=== PATIENT | male | born 1970 | race Caucasian/White ===

== ENCOUNTER 2022-11-23 21:48 | Observation (INO) | payer SELFPAY ==
[2022-11-23 21:53] VITALS: BP 172/107; PULSE 100; RESP 26; O2SAT 100; BMI 22.2
--- NOTE | 2022-11-23 22:01 | CT_ITS ---
[address] [address] Patient Name: MICHELLE STEEN MRN: [id number] date: 1970 Sex: M Assigned Patient Location: ER Current Patient Location: ER Accession/Order Number: [id number] Exam Date: 11/23/2022 22:10 Report Date: 11/23/2022 22:44 At the request of: CHELLE BABCOCK Procedure: CT abdomen pelvis wo con EXAMINATION:CT abdomen pelvis wo con INDICATION:abd pain kidney stone COMPARISON:04/22/2019 TECHNIQUE:Multiple thin section transaxial slices were acquired through the abdomen and pelvis without intravenous contrast. Coronal and sagittal reconstructed images were reviewed. Oral contrastWas not administered. FINDINGS: LOWER CHEST: The lower chest is unremarkable. LIVER: The liver is unremarkable. GALLBLADDER AND BILIARY SYSTEM: No obvious ductal dilation. No calcified stones. SPLEEN: The spleen is unremarkable. PANCREAS: The pancreas is unremarkable. ADRENAL GLANDS: The adrenal glands are unremarkable. KIDNEYS AND URETERS: There is mild fullness of the left renal collecting system and ureter secondary to a 5 mm sized distal left ureteral calculus located just proximal to the ureterovesical junction.Punctate right intrarenal calculi are present. There is no hydronephrosis of the right kidney. The right ureter is within normal limits without obstructing urologic calcifications. VASCULATURE: Vascularity is unremarkable. PERITONEUM/RETROPERITONEUM: Peritoneum/retroperitoneum is unremarkable. LYMPH NODES: No suspicious lymphadenopathy. GASTROINTESTINAL TRACT: The bowel is normal in caliber.No acute inflammation of the bowel.The appendix is visualized and is not inflamed. BLADDER: The urinary bladder is unremarkable. REPRODUCTIVE SYSTEM: Reproductive system is unremarkable. BODY WALL: There are small bilateral fat-containing inguinal hernias. There is a tiny fat-containing umbilical hernia. BONES: There is grade 1 anterolisthesis of L4-L5 and minimal retrolisthesis of L5-S1. There is severe degenerative disc space narrowing of L2-L3 and L4-L5. CT/CT abdomen pelvis wo con IMPRESSION: 1. There is very mild left hydronephrosis and hydroureter secondary to a 5 mm size calculus located in the distal left ureter just proximal to the ureterovesical junction. 2. Punctate nonobstructive right intrarenal calculi. Electronically authenticated by: KRISHNA CONDE Date: 11/23/2022 22:44
[2022-11-23 22:31] LABS: Basophils Absolute Auto 0.1 10^3/uL (0.0-0.1); Basophils Percent Auto 0.4 % (0.2-2.0); Eosinophils Absolute Auto 0.2 10^3/uL (0.0-0.7); Eosinophils Percent Auto 2.1 % (0.9-7.0); Hemoglobin 14.6 g/dL (14.0-18.0); Immature Granulocytes Abs Auto 0.06 10^3/uL (0.00-0.03); Immature Granulocytes Pct Auto 0.5 % (0.0-0.5); Lymphocytes Absolute Auto 2.6 10^3/uL (1.2-3.8); Lymphocytes Percent Auto 22.2 % (20.5-60.0); Mean Corpuscular HGB Conc 34.8 g/dL (29.9-35.2); Mean Corpuscular Hemoglobin 31.7 pg (25.9-34.0); Mean Corpuscular Volume 91.1 fL (80.0-94.0); Mean Platelet Volume 11.4 fL (9.5-13.5); Monocytes Percent Auto 8.7 % (1.7-12.0); Neutrophils Absolute Auto 7.7 10^3/uL (1.4-6.5); Neutrophils Percent Auto 66.1 % (43.0-75.0); Platelet Count 286 10^3/uL (150-450); Red Blood Count 4.61 10^6/uL (4.70-6.10); Red Cell Distribution Width 13.5 % (11.0-15.0); White Blood Count 11.6 10^3/uL (4.0-11.0)
[2022-11-23] MEDS: KETOROLAC TROMETHAMINE 30 MG/ML VIAL 15 MG IVP ×2 (22:33→22:59)
[2022-11-23] MEDS: 0.9 % SODIUM CHLORIDE 1,000 ML 1000 ML IV (22:35)
--- NOTE | 2022-11-23 22:38 | PC.NURSE ---
Patient to ED with severe, sudden onset left flank pain. Also with painful urination, increased frequency and decreased urinary output, all of which started this afternoon. No hx of kidney stones or other situations like this. Patient unable to provide urine sample at this time. He has attempted several times, but has not been able to produce enough urine to run testing.
[2022-11-23 22:44] LABS: Alanine Aminotransferase 42 U/L (16-63); Albumin Globulin Ratio 1.1; Albumin Level 3.8 g/dL (3.4-5.0); Alkaline Phosphatase 87 U/L (46-116); Aspartate Amino Transferase 27 U/L (15-37); BUN Creatinine Ratio 9.3; Bilirubin Total 0.3 mg/dL (0.2-1.0); Calcium 8.6 mg/dL (8.5-10.1); Carbon Dioxide 20.5 mmol/L (21.0-32.0); Chloride 101 mmol/L (98-107); Estimated GFR (African America >60 (>=60); Estimated GFR (Non-African Ame >60 (>=60); Globulin 3.4 g/dL; Glucose 121 mg/dL (74-106); Potassium 3.5 mmol/L (3.5-5.1); Sodium 136 mmol/L (136-145); Total Protein 7.2 g/dL (6.4-8.2)
--- NOTE | 2022-11-23 22:50 | ED_ITS ---
HPI - General Adult General Chief complaint: Urogenital-Male Stated complaint: FLANK PAIN BACK PAIN UTI Time Seen by Provider: 11/23/22 21:56 Source: patient Mode of arrival: walk-in Limitations: no limitations History of Present Illness HPI narrative: The patient is coming with a few hour history of left-sided flank pain associated with urinary frequency no fever no chills no other complaint the patient was in severe pain upon presentation The pain is 10 out of 10 right now and the pt had no radiation of the pain , he also had frequency and burning with urinaion no hx of kidney stone Related Data Home Medications Medication Instructions Recorded Confirmed No Known Home Medications 11/23/22 11/23/22 Allergies Allergy/AdvReac Type Severity Reaction Status Date / Time No Known Drug Allergies Allergy Verified 11/23/22 21:57 Review of Systems ROS Status of ROS 10 or more systems reviewed and unremarkable except as noted in history and below [facility] PFS Social History Smoking status: Current every day smoker Exam Narrative Exam Narrative: Nurses notes and vital signs reviewed and patient is not hypoxic. General: Well-appearing and in no apparent distress. Skin: Warm, dry, no pallor noted. No rash. Head: Normocephalic, atraumatic. Neck: Supple, non-tender. Eye: Pupils are equal, round and EOMI. No scleral icterus. Ears, Nose, Mouth, and Throat: TM are clear, no nasal mucosal hypertrophy. Oral mucosa is moist, no posterior oropharynx erythema, uvula is mid-line Cardiovascular: Regular Rate and Rhythm without murmur, gallop or rub. Respiratory: No accessory muscle use or respiratory distress. Lungs are clear to auscultation, no wheezing, rales or rhonchi Chest Wall: no tenderness Back: No midline thoracic or lumbar vertebral tenderness. left sided CVA tendern ess , pt in distress standing and leaning forward Musculoskeletal: normal ROM, no calf or popliteal tenderness, no lower extremity edema/swelling GI: Abdomen is soft, non-distended. Normal bowel sounds. No masses appreciated. No tenderness to palpation. No rebound, guarding, or rigidity noted. Neurological: A&O x4. No cranial nerve dysfunction observed. No truncal ataxia. Moves all extremities. Sensation intact. Psychiatric: Cooperative and interactive. Normal mood and affect. Constitutional Vital Signs, click to edit/add: Last Vital Signs Pulse 100 H 11/23/22 21:53 Resp 26 H 11/23/22 21:53 BP 172/107 H 11/23/22 21:53 Pulse Ox 100 11/23/22 21:53 Course Vital Signs Vital signs: Vital Signs Pulse Rate 100 H 11/23/22 21:53 Respiratory Rate 26 H 11/23/22 21:53 Blood Pressure 172/107 H 11/23/22 21:53 Pulse Oximetry 100 11/23/22 21:53 Pulse Rate 100 H 11/23/22 21:53 Respiratory Rate 26 H 11/23/22 21:53 Blood Pressure 172/107 H 11/23/22 21:53 Pulse Oximetry 100 11/23/22 21:53 Medical Decision Making MDM Narrative Medical decision making narrative: The patient CBC shows mild leukocytosis he was tachycardic on presentation he also presented to us with urgency and frequency was possible kidney stone The patient chemistry shows mild metabolic acidosis with a lactic acid being 2.9 And the patient urinalysis shows white blood cells and leukocyte esterase with the patient picture right now will be treated for possible UTI and sepsis IV fluids started according to the protocol of 30 cc/kg as bolus , blood culture obtained and the patient was started on ciprofloxacin and ceftriaxone The patient CT shows a mild hydronephrosis on the left side in addition to left- sided 5 mm kidney stone The patient case discussed with Dr. Garcia in neurology service and right now we will keep the patient n.p.o. after midnight possible procedure The patient case was discussed with Dr. Massey and the patient will be admitted Lab Data Labs: Lab Results 11/23/22 11/23/22 Range/Units 22:00 23:25 WBC 11.6 H (4.0-11.0) 10^3/uL RBC 4.61 L (4.70-6.10) 10^6/uL Hgb 14.6 (14.0-18.0) g/dL Hct 42.0 (42.0-54.0) % MCV 91.1 (80.0-94.0) fL MCH 31.7 (25.9-34.0) pg MCHC 34.8 (29.9-35.2) g/dL RDW 13.5 (11.0-15.0) % Plt Count 286 (150-450) 10^3/uL MPV 11.4 (9.5-13.5) fL Neut % (Auto) 66.1 (43.0-75.0) % Lymph % (Auto) 22.2 (20.5-60.0) % [place] % (Auto) 8.7 (1.7-12.0) % Eos % (Auto) 2.1 (0.9-7.0) % Baso % (Auto) 0.4 (0.2-2.0) % Neut # (Auto) 7.7 H (1.4-6.5) 10^3/uL Lymph # (Auto) 2.6 (1.2-3.8) 10^3/uL [place] # (Auto) 1.0 H (0.3-0.8) 10^3/uL Eos # (Auto) 0.2 (0.0-0.7) 10^3/uL Baso # (Auto) 0.1 (0.0-0.1) 10^3/uL Abs Immat Gran (auto) 0.06 H (0.00-0.03) 10^3/uL Imm/Tot Granulo (auto) 0.5 (0.0-0.5) % Sodium 136 (136-145) mmol/L Potassium 3.5 (3.5-5.1) mmol/L Chloride 101 (98-107) mmol/L Carbon Dioxide 20.5 L (21.0-32.0) mmol/L Anion Gap 18.0 BUN 8.0 (7.0-18.0) mg/dL Creatinine 0.86 (0.70-1.30) mg/dL Est GFR ( Amer) >60 (>=60) Est GFR (Non-Af Amer) >60 (>=60) BUN/Creatinine Ratio 9.3 Glucose 121 H (74-106) mg/dL Lactate 2.9 H* (0.4-2.0) mmol/L Calcium 8.6 (8.5-10.1) mg/dL Total Bilirubin 0.3 (0.2-1.0) mg/dL AST 27 (15-37) U/L ALT 42 (16-63) U/L Alkaline Phosphatase 87 (46-116) U/L Total Protein 7.2 (6.4-8.2) g/dL Albumin 3.8 (3.4-5.0) g/dL Globulin 3.4 g/dL Albumin/Globulin Ratio 1.1 Urine Color Lt. yellow (YELLOW) Urine Clarity Clear (CLEAR) Urine pH 6.0 (5.0-9.0) Ur Specific [place] <=1.005 A (1.005-1.025) Urine Protein Negative (NEG/TRACE) mg/dL Urine Glucose (UA) Negative (NEGATIVE) mg/dL Urine Ketones Negative (NEGATIVE) mg/dL Urine Occult Blood Moderate A (NEGATIVE) Urine Nitrite Negative (NEGATIVE) Urine Bilirubin Negative (NEGATIVE) Urine Urobilinogen 0.2 (0.2-1.0) EU/dL Ur Leukocyte Esterase Small A (NEGATIVE) Urine RBC 0-2 (0-2) #/HPF Urine WBC 5-10 A (NONE SEEN) #/HPF Ur Squamous Epith Cells Rare (NONE/RARE) #/LPF Ur Transition Epith Cell Rare A (NONE SEEN) #/LPF Urine Crystals None seen (None Seen) #/HPF Urine Bacteria None seen (NONE SEEN) #/HPF Urine Casts None seen (NONE SEEN) #/LPF Urine Mucus None seen (NONE SEEN) Ur Culture Indicated? Yes Ethanol Quant <3 mg/dL Discharge Plan Discharge Chief Complaint: Urogenital-Male Clinical Impression: Urinary tract infection, Kidney stone, Sepsis, Acidosis, lactic Patient Disposition: Admitted As Inpatient Time of Disposition Decision: 00:04 Condition: Good
[2022-11-23 23:06] LABS: Ethanol <3 mg/dL
[2022-11-23 23:19] LABS: Lactate/Lactic Acid 2.9 mmol/L (0.4-2.0)
[2022-11-23 23:28] LABS: Bilirubin Urine NEGATIVE (NEGATIVE); Blood Urine MODERATE (NEGATIVE); Clarity Urine CLEAR (CLEAR); Color Urine LT. YELLOW (YELLOW); Glucose Urine UA NEGATIVE (NEGATIVE); Ketones Urine NEGATIVE (NEGATIVE); Leukocyte Esterase Urine SMALL (NEGATIVE); Nitrite Urine NEGATIVE (NEGATIVE); Protein Urine NEGATIVE (NEG/TRACE); Specific Gravity Urine <=1.005 (1.005-1.025); Urobilinogen Urine 0.2 EU/dL (0.2-1.0)
[2022-11-23 23:30] LABS: Urine Microscopic Indicated YES
[2022-11-23 23:35] LABS: Bacteria Urine NONE SEEN #/HPF (NONE SEEN); RBC Urine 0-2 #/HPF (0-2)
[2022-11-23 23:36] LABS: Cast Seen? NONE SEEN #/LPF (NONE SEEN); Crystals Seen? None Seen #/HPF (None Seen); Mucus Urine NONE SEEN (NONE SEEN); Squamous Epithelial Cell Urine RARE #/LPF (NONE/RARE); Transitional Epi Cells Urine RARE #/LPF (NONE SEEN); Urine Culture Indicated YES
[2022-11-23] MEDS: CEFTRIAXONE 1,000 MG in 0.9 % SODIUM CHLORIDE 50 ML 100 MG IV (23:44)
[2022-11-23] MEDS: CIPROFLOXACIN IN 5 % DEXTROSE 400 MG/200 ML PIGGYBACK 200 MG IV (23:46)
[2022-11-24] VITALS (15 sets, daily range): BP systolic 104–170; BP diastolic 67–112; PULSE 64–94; RESP 12–23; TEMP 36.6–36.9; O2SAT 90–100; BMI 24.2
--- NOTE | 2022-11-24 | XR_ITS ---
The [address] [address] Patient Name: MICHELLE STEEN MRN: [id number] date: 1970 Sex: M Assigned Patient Location: MS Current Patient Location: Accession/Order Number: [id number] Exam Date: 11/24/2022 11:00 Report Date: 11/24/2022 15:56 At the request of: MICKEY DICKERSON Procedure: XR urethrogram retrograde EXAM: XR urethrogram retrograde HISTORY: LEFT URETERAL STONE COMPARISON: CT abdomen pelvis 11/23/2022 TECHNIQUE: Single intraoperative spot fluoroscopic images during left urethrogram. FINDINGS: Placement of a left ureteral stent. Contrast is present within the upper collecting system and has accumulated within the distal ureter likely due to partial obstruction from a distal ureteral stone(s). XR/XR urethrogram retrograde IMPRESSION: 1. Left ureteral stent placement. 2. Partially obstructing stones within distal left ureter. Electronically authenticated by: MICHELLE RUBIN Date: 11/24/2022 15:56
[2022-11-24] MEDS: SODIUM CHLORIDE 707 ML IV (00:22)
[2022-11-24] MEDS: MORPHINE SULFATE 2 MG/ML SYRINGE IV (00:55)
--- NOTE | 2022-11-24 05:03 | W.PM.TELEPN ---
Progress Note: Subjective Subjective Interval history: Flank pain HPI: This is usually healthy 52-year-old male who presents with above complaints. Patient stating that earlier today he developed pain in his flank which gradually intensified. He denies fevers or chills. On presentation the emergency room imaging studies reveal a 4 mm stone. Urinalysis showed signs of pyuria. Urologist on-call, Dr. Garcia consulted and recommended admission to medical service with possible intervention in the morning. Exam Narrative Exam Narrative: Physical Exam: Not in distress, pleasant, lucid, cooperative, Head - atraumatic, eyes - pupils equal, round, reactive to light, extra ocular movement intact, MMM Neck - supple, thyroid not enlarged, LN not palpated Lungs - clear to auscultation, no dullness on percussion CVS - heart sounds S1, S2, no additional murmurs gallop, regular rate and rhythm Gastrointestinal?abdomen is soft, non-tender, non-distended, no organomegaly, positive bowel sounds CVA tenderness Extremities no clubbing, cyanosis or edema Neurological?cranial nerve II?XII grossly intact, no meningeal signs, no cerebellar signs, no sensory deficit Musculoskeletal - joints, no effusions, ROM preserved Dermatological - the skin dry, warm, no rashes Psychiatric?patient is AAO X3, patient has normal affect Constitutional Vital Signs, click to edit/add: Last Vital Signs Temp 98.4 F 11/24/22 02:29 Pulse 85 11/24/22 02:29 Resp 16 11/24/22 02:29 BP 164/90 H 11/24/22 02:29 Pulse Ox 97 11/24/22 02:29 O2 Del Method Room Air 11/24/22 02:29 Progress Note: Objective Labs Labs: Short CBC 11/23/22 Range/Units 22:00 WBC 11.6 H (4.0-11.0) 10^3/uL Hgb 14.6 (14.0-18.0) g/dL Hct 42.0 (42.0-54.0) % Plt Count 286 (150-450) 10^3/uL BMP 11/23/22 22:00 Sodium 136 Potassium 3.5 Chloride 101 Carbon Dioxide 20.5 L BUN 8.0 Creatinine 0.86 Glucose 121 H Calcium 8.6 Liver Function 11/23/22 Range/Units 22:00 Total Bilirubin 0.3 (0.2-1.0) mg/dL AST 27 (15-37) U/L ALT 42 (16-63) U/L Alkaline Phosphatase 87 (46-116) U/L Albumin 3.8 (3.4-5.0) g/dL Urine 11/23/22 Range/Units 23:25 Urine Color Lt. yellow (YELLOW) Urine Clarity Clear (CLEAR) Urine pH 6.0 (5.0-9.0) Ur Specific [place] <=1.005 A (1.005-1.025) Urine Protein Negative (NEG/TRACE) mg/dL Urine Glucose (UA) Negative (NEGATIVE) mg/dL Progress Note: A&P Assessment and Plan (1) Urinary tract infection: Assessment and Plan: The patient started on empiric, broad-spectrum antibiotics Follow-up with urologist for further recommendations Follow-up culture symptoms control s (2) Kidney stone: Assessment and Plan: As above (3) Sepsis: Assessment and Plan: Due to infection. Improving with IV fluids (4) Acidosis, lactic: Assessment and Plan: This is a result of the sepsis Plan As the provider for the telehealth service, I attest that I introduced myself to the patient, provided my credentials, disclosed by location and determined that based on a review of the patient's chart and discussion with members of the patient's treatment team, telemedicine via real-time, 2 way, and interactive audio and video platform is an appropriate and effective means of providing the service. ?The patient and I mutually agree this visit is appropriate for telemedicine. ?[place] ?The encounter took approximately 35 minutes. ?The nurse was present during the entire time and I was able to move the stethoscope in appropriate directions. ?The patient was evaluated at the Hospital ? Portions of this note may be dictated using [employer]'s voice recognition software. Variances in spelling and vocabulary are possible and unintentional. Not all errors may be caught and/or corrected. Please notify the author if any discrepancies are noted and/or if the meaning of any statement is unclear.? ? Patient verbally consented for treatment via video visit with patient currently located at [facility] and provider located in [place]. Telemedicine Attestation Telemedicine Attestation I conducted this encounter from [place] [] via secure live, [id number] video conference with the patient, located at [facility] with [urinary tract infection]. Prior to the interview, the risks and benefits of telemedicine were discussed with the patient and verbal consent was obtained.
[2022-11-24] MEDS: HYDROMORPHONE HCL 0.5 MG/0.5 ML SYRINGE IV (05:35)
[2022-11-24] MEDS: 0.9 % SODIUM CHLORIDE 1,000 ML 100 ML IV (05:40)
[2022-11-24 06:23] LABS: Alanine Aminotransferase 31 U/L (16-63); Albumin Level 2.9 g/dL (3.4-5.0); Alkaline Phosphatase 71 U/L (46-116); Anion Gap 13.3; Aspartate Amino Transferase 21 U/L (15-37); BUN Creatinine Ratio 6.1; Bilirubin Total 0.4 mg/dL (0.2-1.0); Calcium 7.8 mg/dL (8.5-10.1); Carbon Dioxide 24.5 mmol/L (21.0-32.0); Chloride 107 mmol/L (98-107); Estimated GFR (African America >60 (>=60); Estimated GFR (Non-African Ame >60 (>=60); Globulin 2.9 g/dL; Glucose 101 mg/dL (74-106); Potassium 3.8 mmol/L (3.5-5.1); Sodium 141 mmol/L (136-145); Total Protein 5.8 g/dL (6.4-8.2)
--- NOTE | 2022-11-24 07:49 | PC.NURSE ---
urology called for update at this time. new orders received.
[2022-11-24 08:17] LABS: Basophils Absolute Auto 0.1 10^3/uL (0.0-0.1); Basophils Percent Auto 0.6 % (0.2-2.0); Eosinophils Absolute Auto 0.2 10^3/uL (0.0-0.7); Eosinophils Percent Auto 1.7 % (0.9-7.0); Hematocrit 39.1 % (42.0-54.0); Immature Granulocytes Abs Auto 0.05 10^3/uL (0.00-0.03); Immature Granulocytes Pct Auto 0.5 % (0.0-0.5); Lymphocytes Absolute Auto 2.9 10^3/uL (1.2-3.8); Lymphocytes Percent Auto 26.7 % (20.5-60.0); Mean Corpuscular HGB Conc 33.2 g/dL (29.9-35.2); Mean Corpuscular Hemoglobin 31.6 pg (25.9-34.0); Mean Corpuscular Volume 94.9 fL (80.0-94.0); Mean Platelet Volume 11.5 fL (9.5-13.5); Monocytes Absolute Auto 0.8 10^3/uL (0.3-0.8); Monocytes Percent Auto 7.2 % (1.7-12.0); Neutrophils Absolute Auto 6.8 10^3/uL (1.4-6.5); Neutrophils Percent Auto 63.3 % (43.0-75.0); Platelet Count 245 10^3/uL (150-450); Red Blood Count 4.12 10^6/uL (4.70-6.10); Red Cell Distribution Width 13.4 % (11.0-15.0); White Blood Count 10.7 10^3/uL (4.0-11.0)
[2022-11-24] MEDS: CIPROFLOXACIN IN 5 % DEXTROSE 400 MG/200 ML PIGGYBACK 200 MG IV (09:43)
[2022-11-24] MEDS: TAMSULOSIN HCL 0.4 MG CAPSULE PO (09:43)
--- NOTE | 2022-11-24 09:44 | PM.HP ---
H&P: HPI History of Present Illness Chief complaint: FLANK PAIN BACK PAIN, SEPSIS, UTI, KIDNEY STONE Narrative: Patient with no history of kidney stones presented to the emergency room with left flank pain. Found to have a 5 mm kidney stone with mild left hydronephrosis. Unable to control pain in ER, patient was admitted for evaluation and treatment Review of Systems ROS Status of ROS 10 or more systems reviewed and unremarkable except as noted in history and below [facility] Medical History (Updated 11/24/22 @ 11:21 by Anum Garcia MD) Social History Within the past year, how often did you have a drink containing alcohol: 4 or more times a week Within the past year, how many standard drinks containing alcohol did you have on a typical day: 3 or 4 Smoking status: Current every day smoker Nicotine containing products detail: pack and a half daily Non-prescribed substance use: denies use Previous occupational history: construction Are you now , , , , never or living with a partner: In a typical week, how many times do you talk on the telephone with family, friends, or neighbors: 3 or more times per week How often do you get together with friends or relatives: twice per week How often do you attend adventist or lutheran services: never Do you belong to any clubs or organizations such as adventist groups unions, fraternal or athletic groups, or school groups: no Total score: 2 Score interpretation: A score of greater than or equal to 2 indicates the lowest level of social isolation. Little interest or pleasure in doing things: not at all Feeling down, depressed, or hopeless: not at all Feel stressed/tense/nervous/anxious/difficulty sleeping: not at all Life stressors: recent of family or friend Life stressor details: brother passing Due to disability, difficulty making decisions: No Do you think of yourself as: straight/heterosexual Gender Identity: male Meds Home Medications and Allergies Home Medications Medication Instructions Recorded Confirmed Type ciprofloxacin HCl 500 mg tablet 500 mg PO Q12H #20 tabs 11/24/22 Rx oxybutynin chloride 5 mg tablet 5 mg PO Q8H PRN bladder spasms #90 11/24/22 Rx tabs tamsulosin 0.4 mg capsule 0.4 mg PO DAILY stent pain #30 caps 11/24/22 Rx Allergies Allergy/AdvReac Type Severity Reaction Status Date / Time No Known Drug Allergies Allergy Verified 11/23/22 21:57 Exam Constitutional Vital Signs, click to edit/add: Last Vital Signs Temp 98.0 F 11/24/22 05:49 Pulse 68 11/24/22 05:49 Resp 16 11/24/22 05:49 BP 145/83 H 11/24/22 05:49 Pulse Ox 94 L 11/24/22 05:49 O2 Del Method Room Air 11/24/22 05:49 Documenting provider has reviewed patient's vital signs: yes Common normals: no apparent distress Chest Common normals: inspection of chest normal Respiratory Common normals: normal respiratory effort Cardio Common normals: regular rate and regular rhythm GI Common normals: Normal to inspection, nondistended, normoactive bowel sounds present Common normals: CVA tenderness present (Left CVA tenderness) Results Labs Labs: Short CBC 11/23/22 11/24/22 Range/Units 22:00 05:19 WBC 11.6 H 10.7 (4.0-11.0) 10^3/uL Hgb 14.6 13.0 L (14.0-18.0) g/dL Hct 42.0 39.1 L (42.0-54.0) % Plt Count 286 245 (150-450) 10^3/uL BMP 11/23/22 11/24/22 22:00 05:19 Sodium 136 141 Potassium 3.5 3.8 Chloride 101 107 Carbon Dioxide 20.5 L 24.5 BUN 8.0 4.0 L Creatinine 0.86 0.66 L Glucose 121 H 101 Calcium 8.6 7.8 L Liver Function 11/23/22 11/24/22 Range/Units 22:00 05:19 Total Bilirubin 0.3 0.4 (0.2-1.0) mg/dL AST 27 21 (15-37) U/L ALT 42 31 (16-63) U/L Alkaline Phosphatase 87 71 (46-116) U/L Albumin 3.8 2.9 L (3.4-5.0) g/dL Urine 11/23/22 Range/Units 23:25 Urine Color Lt. yellow (YELLOW) Urine Clarity Clear (CLEAR) Urine pH 6.0 (5.0-9.0) Ur Specific [place] <=1.005 A (1.005-1.025) Urine Protein Negative (NEG/TRACE) mg/dL Urine Glucose (UA) Negative (NEGATIVE) mg/dL Assessment and Plan Assessment and Plan (1) Urinary tract infection: (2) Kidney stone: (3) Sepsis: (4) Acidosis, lactic: (5) Ureteral stone with hydronephrosis: Plan Sinus tachycardia, respiratory distress, uncontrolled hypertension, leukocytosis with positive lactate and abnormal UA, left [id number] to left obstructing nephrolithiasis. Sepsis. Patient given fluids overnight, IV antibiotics, plan is to consult to urology, if improved later today possible discharge. Medications to this. Follow-up with a PCP within the next week.
--- NOTE | 2022-11-24 09:47 | CM.NOTE ---
Rounds made with Dr. Le. Potential for discharge later today after surgical intervention.
[2022-11-24] MEDS: CEFTRIAXONE 1,000 MG in 0.9 % SODIUM CHLORIDE 50 ML 100 MG IV (10:47)
--- NOTE | 2022-11-24 10:58 | P.CN_ITS ---
Consult Note: HPI Data of Consult Consult date: 11/24/22 Requesting Physician: Ron Le MD Primary Care Provider: Non-Staff Physician, MD Consult Narrative Reason for consult: left ureteral stone, concern for sepsis Narrative: 52 year old male with left flank/ back pain and difficulty voiding for one day. Patient arrived tachycardic and hypertensive.Workup here revealed WBC 11, Cr wnl, lactic acid 2.9, UA small leuk esterase, and CT AP wo contrast noting 5 mm left distal ureteral stone just proximal to UVJ with mild hydronephrosis. Due to concern for sepsis with elevated lactate, he was given empiric ceftriaxone and cipro by the ER and admitted for further management. Urology was consulted for further evaluation. Pt still with moderate pain. Denies fever, chills, nausea, emesis, dysuria or hematuria. First stone event Denies hx of RI, stroke, DM2 or other urologic issues. cc:: CC: Ron Le MD Review of Systems ROS Status of ROS 10 or more systems reviewed and unremarkable except as noted in history and below Constitutional Denies: fever or chills Eyes Denies: change in vision or blurry vision Ears, nose, mouth, and throat Denies: throat pain or difficulty swallowing Cardiovascular Denies: chest pain or palpitations Respiratory Denies: shortness of breath or cough Gastrointestinal Reports: abdominal pain (LLQ); Denies: nausea or vomiting Genitourinary Reports: difficulty urinating; Denies: painful urination or blood in urine Musculoskeletal Reports: back pain (L); Denies: extremity pain Integumentary/Breast Denies: rash or itching Neurological Denies: headache or numbness in extremities Psychiatric Denies: anxiety or memory loss Endocrine Denies: excessive urination or excessive thirst Hematologic/Lymphatic Denies: easy bruising or easy bleeding PFSH PFSH Medical History Social History Within the past year, how often did you have a drink containing alcohol: 4 or more times a week Within the past year, how many standard drinks containing alcohol did you have on a typical day: 3 or 4 Smoking status: Current every day smoker Nicotine containing products detail: pack and a half daily Non-prescribed substance use: denies use Previous occupational history: construction Are you now , , , , never or living with a partner: In a typical week, how many times do you talk on the telephone with family, friends, or neighbors: 3 or more times per week How often do you get together with friends or relatives: twice per week How often do you attend druze or gnosticism services: never Do you belong to any clubs or organizations such as druze groups unions, fraternal or athletic groups, or school groups: no Total score: 2 Score interpretation: A score of greater than or equal to 2 indicates the lowest level of social isolation. Little interest or pleasure in doing things: not at all Feeling down, depressed, or hopeless: not at all Feel stressed/tense/nervous/anxious/difficulty sleeping: not at all Life stressors: recent of family or friend Life stressor details: brother passing Due to disability, difficulty making decisions: No Do you think of yourself as: straight/heterosexual Gender Identity: male Meds Home Medications and Allergies Home Medications Medication Instructions Recorded Confirmed Type ciprofloxacin HCl 500 mg tablet 500 mg PO Q12H #20 tabs 11/24/22 Rx Allergies Allergy/AdvReac Type Severity Reaction Status Date / Time No Known Drug Allergies Allergy Verified 11/23/22 21:57 Exam Narrative Exam Narrative: No acute distress, appears nontoxic Nonlabored respirations, symmetric chest rise, on room air Normal rate and rhythm, no peripheral edema Left lower quadrant with moderate tenderness to palpation, non distended Left CVA tenderness to palpation, no suprapubic or right CVA tenderness palpation Moves all extremities, no deformities Alert and oriented x 4, no acute focal deficits Skin dry, intact Appropriate, cooperative Constitutional Vital Signs, click to edit/add: Last Vital Signs Temp 98.0 F 11/24/22 05:49 Pulse 68 11/24/22 05:49 Resp 16 11/24/22 05:49 BP 145/83 H 11/24/22 05:49 Pulse Ox 94 L 11/24/22 05:49 O2 Del Method Room Air 11/24/22 05:49 Results Labs Labs: Short CBC 11/23/22 11/24/22 Range/Units 22:00 05:19 WBC 11.6 H 10.7 (4.0-11.0) 10^3/uL Hgb 14.6 13.0 L (14.0-18.0) g/dL Hct 42.0 39.1 L (42.0-54.0) % Plt Count 286 245 (150-450) 10^3/uL BMP 11/23/22 11/24/22 22:00 05:19 Sodium 136 141 Potassium 3.5 3.8 Chloride 101 107 Carbon Dioxide 20.5 L 24.5 BUN 8.0 4.0 L Creatinine 0.86 0.66 L Glucose 121 H 101 Calcium 8.6 7.8 L Liver Function 11/23/22 11/24/22 Range/Units 22:00 05:19 Total Bilirubin 0.3 0.4 (0.2-1.0) mg/dL AST 27 21 (15-37) U/L ALT 42 31 (16-63) U/L Alkaline Phosphatase 87 71 (46-116) U/L Albumin 3.8 2.9 L (3.4-5.0) g/dL Urine 11/23/22 Range/Units 23:25 Urine Color Lt. yellow (YELLOW) Urine Clarity Clear (CLEAR) Urine pH 6.0 (5.0-9.0) Ur Specific [place] <=1.005 A (1.005-1.025) Urine Protein Negative (NEG/TRACE) mg/dL Urine Glucose (UA) Negative (NEGATIVE) mg/dL Imaging CT scan - pelvis: Radiologist's impression: Patient Name: MICHELLE STEEN ? MRN: [id number]? ? date: 1970? ? Sex: M Assigned Patient Location: ER Current Patient Location: ER Accession/Order Number: [id number] Exam Date: 11/23/2022? 22:10? ? Report Date: 11/23/2022? 22:44 ? At the request of: CHELLE? DIAB? ? Procedure:? CT abdomen pelvis wo con ? EXAMINATION:CT abdomen pelvis wo con ? INDICATION:abd pain kidney stone ? COMPARISON:04/22/2019 ? TECHNIQUE:Multiple thin section transaxial slices were acquired through the abdomen and pelvis without intravenous contrast. Coronal and sagittal reconstructed images were reviewed. Oral contrastWas not administered. ? FINDINGS: LOWER CHEST: The lower chest is unremarkable. ? LIVER: The liver is unremarkable. ? GALLBLADDER AND BILIARY SYSTEM: No obvious ductal dilation. No calcified stones. ? SPLEEN: The spleen is unremarkable. ? PANCREAS: The pancreas is unremarkable. ? ADRENAL GLANDS: The adrenal glands are unremarkable. ? KIDNEYS AND URETERS: There is mild fullness of the left renal collecting system and ureter secondary to a 5 mm sized distal left ureteral calculus located just proximal to the ureterovesical junction.Punctate right intrarenal calculi are present. There is no hydronephrosis of the right kidney. The right ureter is within normal limits without obstructing urologic calcifications. ? VASCULATURE: Vascularity is unremarkable. ? PERITONEUM/RETROPERITONEUM: Peritoneum/retroperitoneum is unremarkable. ? LYMPH NODES: No suspicious lymphadenopathy. ? GASTROINTESTINAL TRACT: The bowel is normal in caliber.No acute inflammation of the bowel.The appendix is visualized and is not inflamed. ? BLADDER: The urinary bladder is unremarkable. ? REPRODUCTIVE SYSTEM: Reproductive system is unremarkable. ? BODY WALL: There are small bilateral fat-containing inguinal hernias. There is ? a tiny fat-containing umbilical hernia. ? BONES: There is grade 1 anterolisthesis of L4-L5 and minimal retrolisthesis of ? L5-S1. There is severe degenerative disc space narrowing of L2-L3 and L4-L5. ? CT/CT abdomen pelvis wo con IMPRESSION: ? 1. There is very mild left hydronephrosis and hydroureter secondary to a 5 mm size calculus located in the distal left ureter just proximal to the ureterovesical junction. 2. Punctate nonobstructive right intrarenal calculi. Assessment and Plan Assessment and Plan (1) Ureteral stone with hydronephrosis: (2) Urinary tract infection: (3) Sepsis: (4) Acidosis, lactic: Plan 52 year old male presents with first acute stone event and concern for sepsis due to tachycardia and elevated lactic acid secondary to a 5 mm left distal ureteral stone with mild hydronephrosis and uncontrolled renal colic. After discussion of risks/benefits of management options, he elected to proceed with cystoscopy, left retrograde pyelogram, left ureteral stent placement. Risks were discussed including but not limited to bleeding, pain, infection, damage to surrounding structures, inability to treat the stone/place a stent, and need for additional procedures. The patient understands the stent is not permanent and needs to be removed or exchanged within 3 months to prevent encrustation, infection, invasive procedures and/or permanent renal damage. -Cont empiric abx and follow up urine culture, treat x 10 days -Cont care on floor post op
--- NOTE | 2022-11-24 11:24 | PM.URSON ---
Urology Surgery Operative Note Operative Note Procedure Date: 11/05/22 Time Out Performed: yes Pre-op Diagnosis: 1. Left distal ureteral stone with hydronephrosis 2. Renal colic 3. UTI 4. Concern for sepsis Post-op Diagnosis: Same Procedures performed: Cystoscopy, left retrograde pyelogram, left ureteral stent placement Anesthesia: GETA (LMA, Dr. Mariusz To ) Primary Surgeon: Anum Garcia Complications: none Estimated blood loss (mL): 0 Findings: Mild bilobar prostatic hypertrophy. Difficult to navigate wire past left distal ureter. L RPG- filling defect at distal ureter, mild proximal hydroureteronephrosis without extravasation. Successful placement of ureteral stent, return of mild debris Specimens: none Drains: 4.7Fr x 22-32 cm JJ left ureteral stent Incision: none Indications for Procedures: 52 year old male presents with first acute stone event and concern for sepsis due to tachycardia and elevated lactic acid secondary to a 5 mm left distal ureteral stone with mild hydronephrosis and uncontrolled renal colic. After discussion of risks/benefits of management options, he elected to proceed with cystoscopy, left retrograde pyelogram, left ureteral stent placement. Risks were discussed including but not limited to bleeding, pain, infection, damage to surrounding structures, inability to treat the stone/place a stent, and need for additional procedures. The patient understands the stent is not permanent and needs to be removed or exchanged within 3 months to prevent encrustation, infection, invasive procedures and/or permanent renal damage. Detailed description of Procedure: After informed consent was obtained, the patient was brought to the operating room and transferred onto the operating table in supine position. Sequential compression devices were placed on bilateral lower extremities. The patient received the appropriate dose of preoperative IV antibiotics (ciprofloxacin) and general anesthesia LMA was induced. They were positioned in modified dorsolithotomy with the appropriate pressure points padded, prepped, and draped in the usual sterile fashion for this procedure. An operative safety timeout was performed confirming the patient's identity, laterality and procedure, and all present agreed to proceed. I began by inserting a 22 [place]i rigid cystoscope with 30 degree lens into the patient's urethra and bladder without difficulty. There were no bladder tumors, lesions or foreign bodies. Bilateral ureteral orifices were orthotopic and patent. I turned my attention to the left ureteral orifice and a 6- [place] open-ended catheter was unable to be inserted into the ureteral orifice. A sensor wire was used to intubate the left UO with some difficulty, ultimately able to bypass the stone and advance the open ended catheter. Dilute contrast was injected for retrograde pyelogram with findings above. The sensor wire was inserted into the ureter up to the renal pelvis confirmed on fluoroscopy, catheter removed. A 4.7Fr x 22-32 cm JJ variable length ureteral stent was advanced over the wire, noting adequate curl in the renal pelvis and bladder on fluoroscopic and direct visualization. The bladder was drained and inspected one final time to ensure adequate position of stent and no undue trauma to the bladder was done. The patient tolerated the procedure well without complication. The patient was awakened from anesthesia and sent to PACU in stable condition. Plan: Return to floor, cont empiric abx and follow up urine culture, treat x 7-10 days. Stable for dc home later today if pt remains stable, afebrile, lactic acidosis resolves. Follow up in office in 1-2 weeks with KUB to discuss definitive stone treatment. Other Provider present: No Post Operative care instructions: See discharge instructions Attending Doc Confirm Attending Attestation: Yes
[2022-11-24] MEDS: IOHEXOL 300 MG/ML - 50 ML BTL INJ (11:30)
[2022-11-24] MEDS: HYDROCODONE/ACETAMINOPHEN 5-325 MG TABLET 1 TAB PO (13:06)
[2022-11-24 14:55] LABS: Lactate/Lactic Acid 1.7 mmol/L (0.4-2.0)
--- NOTE | 2022-12-03 11:56 | CM.DCFOLLOWU ---
3 discharge follow up calls were attempted, no answer
== END 2022-11-24 16:33 | disposition home or self-care (01) ==
LOC: ER 11-24 00:04 → MS 11-24 04:54
PROVIDERS: Urology; Admitting Provider Internal Medicine; Emergency Provider Emergency Medicine; Visit Provider Family Medicine
PROC: (CPT 52332; principal; 2022-11-24 10:45)
DX: A41.9 Sepsis, unspecified organism (principal); N13.6 Pyonephrosis; E87.20 Acidosis, unspecified; F17.210 Nicotine dependence, cigarettes, uncomplicated
CPT/HCPCS: 52332; 36415; 74176; 74420; 76000; 80053; 80320; 81001; 81003; 83605; 85025; 87040; 87086; 96365; 96366; 96368; 96375; 99285; G0378; J1170; J2704; Q9967

== ENCOUNTER 2022-12-10 10:03 | Outpatient (OUT) | payer SELFPAY ==
--- NOTE | 2022-12-10 10:07 | ECG_ITS ---
The [facility] Test Date: 2022-12-10 Pat Name: MICHELLE STEEN Department: Room: - Gender: Male Residence Life Coordinator: : 1970 Requested By: [id number] Order Number: [id number] Reading MD: DAISY MORRIS Measurements Intervals [place] Rate: 70 P: 64 MO: 167 QRS: 21 QRSD: 115 T: 51 QT: 399 QTc: 433 Interpretive Statements SINUS RHYTHM MODERATE INTRAVENTRICULAR CONDUCTION DELAY [110+ ms QRS DURATION] No previous ECG available for comparison Electronically Signed On 12-11-2022 7:06:56 EDT by DAISY MORRIS
== END 2022-12-10 10:04 | disposition home or self-care (01) ==
LOC: PST 10:05
PROVIDERS: Visit Provider Urology
DX: Z01.810 Encounter for preprocedural cardiovascular examination (principal); N20.1 Calculus of ureter
CPT/HCPCS: 93005

== ENCOUNTER 2022-12-24 11:53 | Day surgery (SDC) | payer SELFPAY ==
[2022-12-10 10:25] VITALS: BP 138/86; PULSE 75; RESP 18; TEMP 36.3; O2SAT 99; BMI 23.3
[2022-12-24] VITALS (13 sets, daily range): BP systolic 129–156; BP diastolic 84–98; PULSE 61–93; RESP 14–25; TEMP 36.1–36.2; O2SAT 96–100; BMI 22.1
[2022-12-24] MEDS: LACTATED RINGER'S SOLUTION 1,000 ML 50 ML IV (12:22)
[2022-12-24] MEDS: IPRATROPIUM/ALBUTEROL SULFATE 3 ML AMPUL.NEB IH (12:33)
[2022-12-24] MEDS: CEFAZOLIN SODIUM/DEXTROSE,ISO 2 GM/50 ML PIGGYBACK IV (13:18)
--- NOTE | 2022-12-24 13:23 | P.URON_ITS ---
Urology Surgery Operative Note Operative Note Procedure Date: 12/24/22 Time Out Performed: yes Pre-op Diagnosis: Left distal ureteral stone, indwelling stent Post-op Diagnosis: same as pre-op Procedures performed: Cystoscopy, left retrograde pyelogram, ureteroscopy laser lithotripsy/stone extraction, stent exchange Anesthesia: GETA (LMA Dr. Suresh Ritter ) Primary Surgeon: Anum Garcia Complications: none Estimated blood loss (mL): 0 Findings: Mild bilobar hypertrophy. Tight distal ureter. Left dark irregular shaped distal stone, partially impacted into ureter, successfully basket extracted. No hydronephrosis, extravasation or filling defects. Specimens: left ureteral stone Drains: 4.8Fr x 22-30 cm JJ left ureteral stent on string Incision: none Indications for Procedures: 52 year old male presented with developing sepsis and a 5 mm left distal ureteral stone with mild hydronephrosis and uncontrolled renal colic s/p left stent placement on 11/24/22. After discussion of risks/benefits of management options, he elected to proceed with cystoscopy, left retrograde pyelogram, ureteroscopy with laser lithotripsy/stone extraction, possible ureteral stent exchange vs removal under general anesthesia. Risks were discussed including but not limited to bleeding, pain, infection, damage to surrounding structures, inab ility to treat the stone/place a stent, and need for additional procedures. The patient understands the stent is not permanent and needs to be removed or exchanged within 3 months to prevent encrustation, infection, invasive procedures and/or permanent renal damage. Detailed description of Procedure: After informed consent was obtained, the patient was brought to the operating room and transferred onto the operating table in supine position. Sequential compression devices were placed on bilateral lower extremities. The patient received the appropriate dose of preoperative IV antibiotics and general anesthesia LMA was induced. They were positioned in modified dorsolithotomy with the appropriate pressure points padded, prepped, and draped in the usual sterile fashion for this procedure. An operative safety timeout was performed confirming the patient's identity, laterality and procedure, and all present agreed to proceed. I began by inserting a 22 [place] rigid cystoscope with 30 degree lens into the patient's urethra and bladder without difficulty. There were no bladder tumors, lesions, or stones. Bilateral ureteral orifices were orthotopic and patent. I turned my attention to the left ureteral orifice and brought the indwelling stent with flexible graspers to the meatus. A Sensor wire was inserted into the stent up to the renal pelvis confirmed on fluoroscopy and the stent was removed without difficulty. Next a semirigid ureteroscope was inserted along the wire to get access to the distal ureteral stone. A 2.2 tipless nitinol basket was used to remove the stone. After the stone was adequately treated, a ureteroscopy was performed confirming no significant residual stones or fragments remained. Contrast was injected for retrograde pyelogram with findings above. The wire was reinserted and a pull down ureteroscopy was performed confirming no stones remained in the ureter. A 4.8Fr x 22-30cm JJ variable length ureteral stent on a string was advanced over the wire, noting adequate curl in the renal pelvis and bladder on fluoroscopic and direct visualization. The bladder was drained and inspected one final time to ensure adequate position of stent and no undue trauma to the bladder was done. The stones were sent for pathology and the cystoscope was removed. The patient tolerated the procedure well without complication. The patient was awakened from anesthesia and sent to PACU in stable condition. Plan: Discharge home with stent pain medications. Remove stent by the string at home in 4-5 days. Follow up in 6 wks with renal US. Other Provider present: No Post Operative care instructions: See discharge instructions Attending Doc Confirm Attending Attestation: Yes
[2022-12-24] MEDS: IOHEXOL 240 MG/ML - 50 ML VIAL INJ (13:55)
--- NOTE | 2022-12-24 15:08 | PC.NURSE ---
PATIENT URINATED BLOOD TINGED URINE AT THIS TIME
[2023-01-04 00:06] LABS: Calcium Oxalate Dihydrate 80 % (.); Calcium Oxalate Monohydrate 15 % (.); Calcium phosphate (hydroxyl) 5 % (.); Size 5x3 mm (.)
== END 2022-12-24 15:09 | disposition home or self-care (01) ==
PROVIDERS: Visit Provider Urology
PROC: (CPT 52356; principal; 2022-12-24 12:30)
DX: N20.1 Calculus of ureter (principal); M19.90 Unspecified osteoarthritis, unspecified site; F17.210 Nicotine dependence, cigarettes, uncomplicated
CPT/HCPCS: 52356; 74420; 82365; 94640; 99406; 99999; J2704; Q9966

== ENCOUNTER 2023-04-07 13:13 | Outpatient (RCR) | payer OTHER, SELFPAY | END 2023-04-26 09:00 | disposition home or self-care (01) | LOC: PT 13:13 | PROVIDERS: Visit Provider Orthopaedic Surgery | DX: S60.410D Abrasion of right index finger, subsequent encounter (principal); S60.412D Abrasion of right middle finger, subsequent encounter; S68.624D Partial traumatic transphalangeal amputation of right ring finger, subsequent encounter | CPT/HCPCS: 97750 ==